=== PATIENT | female | born 1995 | race African-American/Black ===

== ENCOUNTER 2017-02-01 22:39 | Emergency (ER) | payer SELFPAY ==
[~2017-02-01] VITALS: Ht 167.6 cm; Wt 68.0 kg
[2017-02-01 22:44] VITALS: BP 113/75
== END 2017-02-02 01:05 | disposition left against medical advice (07) ==
LOC: ER 22:39
DX: M54.9 Dorsalgia, unspecified (principal); Z53.21 Procedure and treatment not carried out due to patient leaving prior to being seen by health care provider

== ENCOUNTER 2017-02-02 13:58 | Emergency (ER) | payer SELFPAY ==
[~2017-02-02] VITALS: Ht 167.6 cm; Wt 68.0 kg
[2017-02-02] MEDS ORDERED: IBUPROFEN 600MG TABLET PO ONE (17:00)
[2017-02-02 17:26] VITALS: BP 114/66
== END 2017-02-02 18:12 | disposition home or self-care (01) ==
LOC: ER 13:58
DX: S00.83XA Contusion of other part of head, initial encounter (principal); S30.0XXA Contusion of lower back and pelvis, initial encounter; V49.59XA Passenger injured in collision with other motor vehicles in traffic accident, initial encounter; Y93.89 Activity, other specified; Y99.8 Other external cause status; Y92.89 Other specified places as the place of occurrence of the external cause
CPT/HCPCS: 99282